=== PATIENT | male | born 1955 | race Caucasian/White ===

== ENCOUNTER → 2018-09-23 | Outpatient (CLI) | payer OTHER ==
--- NOTE | 2018-09-23 16:11 | CARDNUC ---
[place] [address] CARDIAC NUCLEAR IMAGING REPORT Name: MICHAEL ANDREWS Room: [facility]#: [id number] Admission: 09/23/18 Attend Phys: Rafi Arroyo, Discharge: Date of : 55 Date of Service: 09/23/18 1610 Report #: [id number] THIS REPORT FOR: //name// APPROVED REPORT Study performed: 09/23/2018 13:00:00 Indication: Chest pain Patient Location: Out-Patient Stress Tech: Zainab Draper Stress Nurse: Corrie Godoy RN Ht: 6 ft 3 in Wt: 175 lbs BSA: 2.07 m2 BMI: 21.87 Medical History Medical History: Angina, HTN, PVD. Medications: Amlodipine, Excedrine. Allergies: No known drug allergies Cardiac Risk Factors: Age, FHX of CAD, HTN, PVD. Previous Cardiac Procedures: None Pretest Chest Pain Characteristics: No chest pain Exercise History: Indeterminate Physical Disabilities: Neuropathy, PVD, Knee pain. Meds Held (24 hrs): Excedrine. Resting Data Rest SPECT myocardial perfusion imaging was performed in supine position 30 minutes following the intravenous injection of 10.2 mCi of Tc-99m Sestamibi. Time of rest injection: 13:10 The images were gated to evaluate regional wall motion and calculate left ventricular ejection fraction. Administration Route: IV Administration Site: Right AC Pharmacologic Stress Pharmacologic stress test was performed by injecting Regadenoson 0.4 mg IV push over 10-15 seconds immediately followed by the intravenous injection of 33.2 mCi of Tc-99m Sestamibi. Time of stress injection: 14:45 Administration Route: IV Administration Site: Right AC Gated Stress SPECT was performed 40 minutes [place] [address] CARDIAC NUCLEAR IMAGING REPORT Name: MICHAEL ANDREWS Room: [facility]#: [id number] Admission: 09/23/18 Attend Phys: Rafi Arroyo, Discharge: Date of : 55 Date of Service: 09/23/18 1610 Report #: [id number] The images were gated to evaluate regional wall motion and calculate left ventricular ejection fraction. Prone imaging was performed. Stress Test Details Stress Test: Pharmacologic stress was paired with low level exercise. Reason for pharmacologic stress test: Neuropathy, knee pain, PVD.. HR Max Heart Rate (APMHR): 158 bpm Resting HR: 85 bpm Target HR (85% APMHR): 134 bpm Max HR Achieved: 146 bpm % of APMHR: 92 Recovery HR: 105 bpm BP Resting BP: 150/93 mmHg Max BP: 188/76 mmHg Recovery BP: 145/90 mmHg ECG Resting ECG: Sinus Rhythm Stress ECG: Sinus Tachycardia ST Change: None Arrhythmia: None Recovery ECG: Sinus Rhythm Recovery ST Change: None Recovery Arrhythmia: None Clinical Reason for Termination: Completed protocol Stress Symptoms: Headache, Lightheaded, Dyspnea, Flushed. Exercise duration: 4 min 00 sec Exercise capacity: 2.30 METs The patient tolerated walking Lexiscan protocol without significant symptoms. Nurse Comments 62 year old male presented with recent HX of CP. Patient agreed to walk a slow, no incline treadmill r/t neuropathy, PVD and knee pain, he felt he could handle that walk. Patient tolerated test with minimal side effects which resolved in recovery with PO caffeine. Patient escorted by staff to Nuclear Medicine for images. Patient stable with no complaints at that time. [place] [address] CARDIAC NUCLEAR IMAGING REPORT Name: MICHAEL ANDREWS Room: [facility]#: [id number] Admission: 09/23/18 Attend Phys: Rafi Arroyo, Discharge: Date of : 55 Date of Service: 09/23/18 1610 Report #: [id number] The baseline 12-lead elect cardiogram showed normal sinus rhythm with no significant ST or T wave abnormalities. EKGs obtained during and post walking Lexiscan protocol showed sinus rhythm and sinus tachycardia with no significant ST or T wave changes when compared to baseline. There were no stress-induced arrhythmias. Study Quality Study: Good Artifact: Mild Diaphragmatic artifact Study Data At rest, the left ventricular ejection fraction was 63%.. Post stress, the left ventricular ejection was 65%.. TID = 0.92. Perfusion Perfusion images obtained in the supine position at rest and post Lexiscan walking stress showed mild photopenia that resolves completely with post stress prone imaging suggesting diaphragmatic attenuation artifact. No other significant fixed or reversible defects were identified. Wall Motion Normal left ventricular wall motion. Nuclear Conclusion ECG Findings: negative for ischemia Clinical Findings: negative for ischemia Nuclear Findings: negative for ischemia Exercise Capacity: not assessed Left Ventricular Function: normal Risk Study: low Myocardial perfusion images show no defect to suggest infarct or ischemia. Left ventricular systolic function appears normal on gated studies. This is a low risk study. <Conclusion> The baseline 12-lead elect cardiogram showed normal sinus rhythm with no significant ST or T wave abnormalities. EKGs obtained during and post walking Lexiscan protocol showed sinus rhythm and sinus tachycardia with no significant ST or T wave changes when compared to baseline. There were no stress-induced arrhythmias. <ELECTRONICALLY SIGNED> By: Wade Bai MD, FACC 09/23/18 1610 09 09 Wade Bai MD, FACC /INF
== END ==
LOC: M.NUC 09-03 07:21
DX: R07.9 Chest pain, unspecified (principal); I20.9 Angina pectoris, unspecified; I10 Essential (primary) hypertension; I73.9 Peripheral vascular disease, unspecified; Z79.899 Other long term (current) drug therapy